=== PATIENT | male | born 1940 | race Caucasian/White ===

== ENCOUNTER → 2019-11-03 | Outpatient (CLI) | payer MEDICARE | END | disposition home or self-care (01) | LOC: PLD 08:26 → LAB SHORT 08:26 | DX: D04.5 Carcinoma in situ of skin of trunk (principal) | CPT/HCPCS: 88305 ==

== ENCOUNTER 2023-01-02 01:38 | Day surgery (SDC) | payer MEDICARE ==
[2023-01-02] VITALS (7 sets, daily range): BP systolic 102–146; BP diastolic 45–69
[2023-01-02] MEDS ORDERED: JAKAFI20 MG PO (17:41)
[2023-01-02] MEDS ORDERED: HYDCHL50 PO (17:41)
[2023-01-02] MEDS ORDERED: CARDURA2 M2 PO (17:42)
== END 2023-01-02 17:22 | disposition home or self-care (01) ==
LOC: ATC 01:38
DX: D47.3 Essential (hemorrhagic) thrombocythemia (principal); I10 Essential (primary) hypertension; E78.5 Hyperlipidemia, unspecified
CPT/HCPCS: 36415; 36430; 86850; 86900; 86901; 86923; J7050; P9016